=== PATIENT | male | born 1985 | race Caucasian/White ===

== ENCOUNTER 2019-08-14 00:57 | Emergency (ER) | payer OTHER ==
[~2019-08-14] VITALS: Ht 172.7 cm; Wt 83.0 kg
[2019-08-14 01:00] VITALS: BP 135/95
--- NOTE | 2019-08-14 01:00 | NUR ---
ED Nurse Note: Pt is aaox4, vss, with no acute distress. Pt is cooperative and disheveled. Pt speaks clearly and is focused. Pt denies any harm to himself or other. Pt is very apologetic, on clinical research monitor, no skin issues, and is in bed. Pt BIBA R61 from home c/o substance abuse. Pt states he did cocaine. NARCAN X 2 MG GIVEN ON FIELD BY MEDIC.
--- NOTE | 2019-08-14 01:06 | Emergency Room Report ---
History of Present Illness General Chief Complaint: Substance Abuse Source: Patient Present Illness HPI Is a 34-year-old male with no past medical history. He was brought in by EMS with overdose. He said that he was snorting cocaine today. He may have actually used heroin. His friends called 911 because he was not breathing. EMS that he had pinpoint pupil and respirations very shallow and was breathing about 8 breaths/min. They gave him 2 mg Narcan that woke him up. Patient denies any other symptoms. Is not suicidal thoughts homicidal thought. Denies any other complaint. He said this happened to him once before. Allergies: Coded Allergies: PENICILLINS (Verified Allergy, Unknown, 08/14/19) Patient History Past Medical History: see triage record, old chart reviewed Past Surgical History: none Pertinent Family History: none Social History: Reports: drug use; Denies: smoking Immunizations: other Reviewed Nursing Documentation: PMH: Agreed; PSxH: Agreed Nursing Documentation-PMH Past Medical History: No Stated History Review of Systems Eye: Denies: eye pain, blurred vision ENT: Denies: ear pain, nose congestion, throat swelling Respiratory: Denies: cough, shortness of breath Cardiovascular: Denies: chest pain, palpitations Gastrointestinal: Denies: abdominal pain, diarrhea, nausea, vomiting Musculoskeletal: Denies: back pain, joint pain Skin: Denies: rash Neurological: Denies: headache, numbness Endocrine: Denies: increased thirst, increased urine Hematologic/Lymphatic: Denies: easy bruising All Other Systems: negative except mentioned in HPI Physical Exam Vital Signs Date Time Temp Pulse Resp B/P (MAP) Pulse Ox O2 Delivery O2 Flow Rate FiO2 08/14/19 00:55 99.0 110 18 132/87 (102) 98 Room Air Vitals unremarkable Sp02 EP Interpretation: reviewed, normal General Appearance: well appearing, no apparent distress, alert Head: normocephalic, atraumatic Eyes: bilateral eye PERRL, bilateral eye EOMI ENT: hearing grossly normal, normal pharynx Neck: full range of motion, supple, no meningismus Respiratory: chest non-tender, lungs clear, normal breath sounds Cardiovascular #1: regular rate, rhythm, no murmur Gastrointestinal: normal bowel sounds, non tender, no mass, no organomegaly, no bruit, non-distended Musculoskeletal: back normal, normal range of motion, gait/station normal Psychiatric: mood/affect normal Medical Decision Making Diagnostic Impression: Primary Impression: Accidental heroin overdose Qualified Codes: T40.1X1A - Poisoning by heroin, accidental (unintentional), initial encounter ER Course Patient with accidental heroin overdose. No evidence of suicidal thoughts homicidal thought. Will observe for about an hour to make sure no rebound effect. Will discharge home afterward. This patient is a chronic risk of self injury due to poor impulse control, limited coping skills, and judgment intermittently impaired by intoxication. I believe that the available clinical evidence to suggest that these characteristics derived primarily from personality disorder and are likely very stable over time. Hospitalization would likely attenuate risk of self-harm only during mcc period, without lasting risk reduction. Serious self-harm , while possible, would likely be inadvertent, and because of impulsivity, and foreseeable. For these reasons, I do not believe hospitalization would provide meaningful reduction in risk of self-harm. Last Vital Signs Date Time Temp Pulse Resp B/P (MAP) Pulse Ox O2 Delivery O2 Flow Rate FiO2 08/14/19 00:55 99.0 110 18 132/87 (102) 98 Room Air Status: improved Disposition: HOME, SELF-CARE Condition: Stable Additional Instructions: Abstain from drugs and alcohol. Go to rehab. Follow-up with your doctor in 7 days. Return if worse. Mateo Correia MD Aug 14, 2019 01:06
--- NOTE | 2019-08-14 01:23 | NUR ---
ED Nurse Note: Pt in bed resting
[2019-08-14 02:15] VITALS: BP 138/95
--- NOTE | 2019-08-14 02:15 | NUR ---
ER DISCHARGE NOTE: Patient is cleared to be discharged per ERMD, pt is aox4, on room air, with stable vital signs. pt was given dc and prescription instructions, pt was able to verbalize understanding, pt id band and iv site removed without complications. pt is able to ambulate with steady gait. pt took all belongings. Pt left the ED with her friend.
== END 2019-08-14 02:15 | disposition home or self-care (01) ==
LOC: EDBD 00:57 → EMR 01:09
DX: T40.1X1A Poisoning by heroin, accidental (unintentional), initial encounter (principal); Z88.0 Allergy status to penicillin
CPT/HCPCS: 99284